=== PATIENT | female | born 1995 | race African-American/Black ===

== ENCOUNTER 2019-04-14 13:51 | Emergency (ER) | payer OTHER ==
[~2019-04-14] VITALS: Ht 154.9 cm; Wt 56.7 kg
[2019-04-14 13:52] VITALS: BP 116/68
[2019-04-14] MEDS ORDERED: IBUPROFEN 800800 M1 PO (14:13)
[2019-04-14] MEDS ORDERED: KEFLEX500 M1 PO (14:13)
== END 2019-04-14 14:20 | disposition home or self-care (01) ==
LOC: ER 13:51
DX: S61.303A Unspecified open wound of left middle finger with damage to nail, initial encounter (principal); L03.012 Cellulitis of left finger; W22.03XA Walked into furniture, initial encounter; Y93.89 Activity, other specified; Y92.89 Other specified places as the place of occurrence of the external cause; Y99.8 Other external cause status